=== PATIENT | male | born 1945 | race Caucasian/White ===

== ENCOUNTER → 2020-05-31 | Outpatient (CLI) | payer MEDICARE | END | disposition home or self-care (01) | LOC: CFH 08:27 | PROVIDERS: ATTEND Internal Medicine | DX: I08.8 Other rheumatic multiple valve diseases (principal) | CPT/HCPCS: 93306 ==

== ENCOUNTER 2020-08-01 12:02 | Day surgery (SDC) | payer MEDICARE ==
[~2020-08-01] VITALS: Ht 182.9 cm; Wt 85.1 kg
[2020-08-01 12:53] VITALS: BP 127/70
[2020-08-01] MEDS ORDERED: MULT1TAB58 PO (12:53)
[2020-08-01] MEDS ORDERED: LISI5TAB7 PO (12:53)
[2020-08-01] MEDS ORDERED: SODIUM CHLORIDE 0.9% 1,000 ML IV ONE (13:00)
[2020-08-01 13:25] LABS: BASOPHILS % (AUTO) 1 % (0-1); EOSINOPHILS % (AUTO) 1 % (1-7); LYMPHOCYTES % (AUTO) 28 % (22-44); MEAN CORPUSCULAR HEMOGLOBIN 32.4 pg (27.5-34.5); MEAN CORPUSCULAR HGB CONC 34.4 g/dL (33.2-36.2); MEAN PLATELET VOLUME 9.4 fL (7.4-10.4); MONOCYTES % (AUTO) 11 % (2-9); NEUTROPHILS % (AUTO) 60 % (42-75); PLATELET COUNT 226 x10^3/uL (130-400); RED BLOOD COUNT 5.04 x10^6/uL (4.38-5.82); RED CELL DISTRIBUTION WIDTH 14.3 % (9.4-14.8)
[2020-08-01 13:27] LABS: ANION GAP 7 mmol/L (5-15); CALCIUM 8.4 mg/dL (8.5-10.1); CHLORIDE 106 mmol/L (98-107); CREATININE 0.84 mg/dL (0.7-1.3)
[2020-08-01] MEDS ORDERED: PROPOFOL 10 MG/ML, 20ML ONE (13:56)
[2020-08-01] MEDS ORDERED: VERAPAMIL 2.5 MG/ML, 2ML ONE (15:09)
[2020-08-01] MEDS ORDERED: FENTANYL PF 100 MCG/2ML ONE (15:09)
[2020-08-01] MEDS ORDERED: MIDAZOLAM 1 MG/ML, 5ML ONE (15:09)
[2020-08-01] MEDS ORDERED: LIDOCAINE-MPF 1%, 5ML ONE (15:10)
[2020-08-01] MEDS ORDERED: HEPARIN 1,000 UNITS/ML, 10ML ONE (15:10)
[2020-08-01] MEDS ORDERED: BIVALIRUDIN 250 MG ONE (15:45)
[2020-08-01 16:30] VITALS: BP 112/64
[2020-08-01] MEDS: SODIUM CHLORIDE 0.9% 1,000 ML IV SCH (17:00)
[2020-08-01 19:19] VITALS: BP 118/73
[2020-08-01] MEDS: LISINOPRIL 5 MG TABLET PO SCH (21:50)
[2020-08-01] MEDS: TICAGRELOR 90 MG TABLET PO SCH (21:50)
[2020-08-02] MEDS: SODIUM CHLORIDE 0.9% 1,000 ML IV SCH ×2 (01:02→09:00)
[2020-08-02 01:33] VITALS: BP 103/60
[2020-08-02 04:53] LABS: ANION GAP 8 mmol/L (5-15); CALCIUM 8.2 mg/dL (8.5-10.1); CHLORIDE 108 mmol/L (98-107)
[2020-08-02 04:54] LABS: CREATININE 0.76 mg/dL (0.7-1.3)
[2020-08-02 07:48] VITALS: BP 116/63
[2020-08-02] MEDS ORDERED: ASPIRIN 81 MG TABLET EC PO SCH (09:00)
[2020-08-02] MEDS: TICAGRELOR 90 MG TABLET PO SCH (09:00)
[2020-08-02] MEDS: LISINOPRIL 5 MG TABLET PO SCH (09:00)
[2020-08-02] MEDS ORDERED: ATOR40TA PO (09:25)
[2020-08-02] MEDS ORDERED: ASPI81TA45 PO (09:25)
[2020-08-02] MEDS ORDERED: TICA90TA PO (09:25)
== END 2020-08-02 11:19 | disposition home or self-care (01) ==
LOC: CACL 12:02 → 5SO 16:25 → CACL 17:34 → UNDOADMOB 17:35 → 5SO 17:35 → DCLOUNGE 08-02 11:06 → 5SO 08-02 11:06 → UNDODISOB 08-02 11:19 → CACL 08-02 11:19
PROVIDERS: ATTEND Internal Medicine Cardiovascular Disease
DX: I08.0 Rheumatic disorders of both mitral and aortic valves (principal); I25.10 Atherosclerotic heart disease of native coronary artery without angina pectoris; I25.84 Coronary atherosclerosis due to calcified coronary lesion; I11.0 Hypertensive heart disease with heart failure; I50.9 Heart failure, unspecified; M19.90 Unspecified osteoarthritis, unspecified site; Z20.822 Contact with and (suspected) exposure to COVID-19; Z79.899 Other long term (current) drug therapy; Z88.5 Allergy status to narcotic agent
CPT/HCPCS: 36415; 80048; 85025; 87635; 93312; 93321; 93325; 93458; 99156; 99157; C1725; C1769; C1874; C1887; C1894; C9600; J0583; J1644; J2250; J2704; J3010; Q9967; G0378